=== PATIENT | male | born 1955 | race Caucasian/White ===

== ENCOUNTER 2017-08-25 18:05 | Emergency (ER) | payer SELFPAY ==
[~2017-08-25] VITALS: Ht 172.7 cm; Wt 72.6 kg
[~2017-08-25 18:05] MED LIST: FLUO20CA19 PO; NOR10T PO; QUET200T30 PO
[2017-08-25 19:19] LABS: Basophils # (auto) 0.1 uL; Eosinophils # (auto) 0.1 uL; Lymphocytes # (auto) 2.2 uL; Lymphocytes % (auto) 33.6 % (10.0-50.0); Neutrophils # (auto) 3.5 uL; Nucleated Red Blood Cells % 0.1 %; Red Cell Distribution Width 13.6 % (11.8-14.3)
[2017-08-25 19:21] LABS: Basophils % (auto) 1.1 % (0.0-2.0); Eosinophils % (auto) 1.7 % (0.0-7.0); Hematocrit 47.3 % (41.0-53.0); Hemoglobin 15.9 g/dL (13.5-17.5); Mean Corpuscular Hemoglobin 34.1 pg (28.0-32.0); Mean Corpuscular Hgb Conc. 33.6 g/dL (32.0-36.0); Mean Corpuscular Volume 101.3 fL (80.0-100.0); Monocytes # (auto) 0.7 uL; Monocytes % (auto) 10.2 % (0.0-12.0); Neutrophils % (auto) 53.4 % (37.0-80.0); Platelet Count (auto) 227 10^3/uL (140-450); Red Blood Cells 4.67 10^6/uL (4.5-5.90); White Blood Cell 6.5 10^3/uL (4.4-10.8)
[2017-08-25 19:25] LABS: BUN/Creatinine Ratio 15.5; Calcium 8.9 mg/dL (8.5-10.1); Potassium 3.1 mmol/L (3.5-5.1)
[2017-08-25 19:31] LABS: Bilirubin, Total 0.6 mg/dL (0.2-1.0)
[2017-08-25] MEDS ORDERED: SODIUM CHLORIDE 0.9% 1,000 ML IV ONE (21:30)
[2017-08-25] MEDS ORDERED: THIAMINE INJ 100 MG, MULTIPLE VITAMIN 10 ML, FOLIC ACID 1 MG, MAGNESIUM SULF SDV 50% 8 ... IV SCH ×5 (22:00)
[2017-08-25] MEDS ORDERED: FOLIC ACID 1 MG TAB ONE (22:18)
[2017-08-25] MEDS ORDERED: THIAMINE HCL 100 MG/ML 2ML VIAL ONE (22:18)
[2017-08-25] MEDS ORDERED: MVI in SODIUM CHLORIDE 0.9% 1,010 ML ONE (22:18)
[2017-08-25] MEDS ORDERED: POTASSIUM CHL 20 Meq TABLET PO ONE ×2 (23:08→23:15)
[2017-08-26] MEDS ORDERED: diphenhdrAMINE HCL 50 MG/1 ML VL IV ONE (02:15)
[2017-08-26 03:23] VITALS: BP 94/68
[2017-08-26] MEDS ORDERED: THIAMINE INJ 100 MG, MULTIPLE VITAMIN 10 ML, FOLIC ACID 1 MG, MAGNESIUM SULF SDV 50% 8 ... IV SCH ×5 (12:00)
== END 2017-08-26 03:42 | disposition home or self-care (01) ==
LOC: ER 18:05 → EDBD 18:05 → ER 08-26 03:42
DX: G92 Toxic encephalopathy (principal); F10.120 Alcohol abuse with intoxication, uncomplicated; E87.6 Hypokalemia; I10 Essential (primary) hypertension
CPT/HCPCS: 36415; 70450; 71045; 80053; 80320; 85025; 93005; 96361; 96365; 96366; 99285; J3411; J3475; J7030

== ENCOUNTER 2018-09-17 14:59 | Emergency (ER) | payer MEDICAID ==
[~2018-09-17] VITALS: Ht 165.1 cm; Wt 77.1 kg
[2018-09-17 15:18] VITALS: BP 137/71
[2018-09-17] MEDS ORDERED: SODIUM CHLORIDE 0.9% 1,000 ML IV ONE ×2 (16:06)
[2018-09-17] MEDS ORDERED: PIPERACILLIN-TAZOB 3.375GM 100 ML IV ONE (16:15)
== END 2018-09-17 17:38 | disposition left against medical advice (07) ==
LOC: ER 14:59 → EDBD 14:59 → ER 17:38
DX: L03.116 Cellulitis of left lower limb (principal); L03.115 Cellulitis of right lower limb; F12.90 Cannabis use, unspecified, uncomplicated; I10 Essential (primary) hypertension; Z59.0 Homelessness; Z79.899 Other long term (current) drug therapy